=== PATIENT | male | born 1960 | race Caucasian/White ===

== ENCOUNTER 2017-01-18 10:04 | Emergency (ER) | payer BC ==
--- NOTE | ~2017-01-18 | US67 ---
[facility] A Service [facility] RADIOLOGY TEXT RESULTS PATIENT: MALICK ROMERO LOCATION: [facility] : 58 UNIT #: [id number] AGE: [address]: Daniel Carrillo MD SEX: M ORDER DR: [id number] [address] [address] [id number] E MR#: [id number] Acc #: [id number] NAME: MALICK ROMERO : 1960 SEX: M STUDY DATE/TIME: 01/18/2017 11:05 UNIT: [facility] ROOM: STUDY DESCRIPTION: US Gallbladder Attending Physician: Daniel Carrillo M.D. Ordering Physician: Daniel Carrillo M.D. Primary Care Physician: Patrizia Castañeda M.D. MEDICAL IMAGING REPORT This report is preliminary unless electronic signature is present EXAM Gallbladder ultrasound HISTORY Nausea abdomen pain right upper quadrant since 3 a.m. COMPARISON 03/29/2013 FINDINGS The pancreas is poorly visualized in the head and body. Normal. The liver shows increased echogenicity suggesting fatty change. It is normal in size. The right kidney is 11.3 cm in length and appears normal. The gallbladder is adequately distended. Gallbladder wall is normal measuring 2 mm in thickness. The common bile duct is 4 mm in diameter. IMPRESSION 1. There is no evidence of stones or biliary distention. 2. Diffuse fatty changes throughout the liver appears to be present. Dictated by... Natanael Cruz M.D. THIS IS AN ELECTRONICALLY VERIFIED REPORT Natanael Cruz M.D. at 01/18/2017 4:00 PM WOOD/rnr [facility] A Service [facility] RADIOLOGY TEXT RESULTS PATIENT: MALICK ROMERO LOCATION: [facility] : 58 UNIT #: [id number] AGE: [address]: Daniel Carrillo MD SEX: M ORDER DR: TD: 01/18/2017 12:56 JOB #: [id number] MEDICAL IMAGING REPORT COPY
[~2017-01-18 10:04] MED LIST: IBUPROFEN PO; NO MEDICATIONS
[2017-01-18 10:19] LABS: BASOPHIL% 0.7 % (0-2.5); DIFF IND NO; EOSINOPHIL% 0.2 % (0.0-7.0); HEMATOCRIT 44.9 % (38.0-50.0); HEMOGLOBIN 15.2 gm/dL (13.0-16.0); LYMPHOCYTE# 0.3 X10e3 (1.0-3.5); LYMPHOCYTE% 7.4 % (17.0-45.0); MEAN CELL VOLUME 94.7 FL (83-96); MEAN CORPUSCULAR HEMOGLOBIN 32.1 PG (28-34); MEAN CORPUSCULAR HGB CONC 33.9 g/dL (30-36); MEAN PLATELET VOLUME 7.9 FL (6.5-11.5); MONOCYTE# 0.4 X10e3 (0-1.0); MONOCYTE% 9.6 % (3.0-12.0); NEUTROPHIL# 3.6 X10e3 (1.5-7.1); NEUTROPHIL% 82.1 % (40-75); PLATELET COUNT 133 X10e3 (140-420); RED BLOOD COUNT 4.74 X10e (3.90-5.60); WHITE BLOOD COUNT 4.4 X10e3 (4.0-10.5)
[2017-01-18 11:41] LABS: ALBUMIN SERUM 4.7 g/dL (3.5-5.0); AST (SGOT) 119 U/L (10-42); BILIRUBIN, DIRECT 0.3 mg/dL (0.0-0.2); BILIRUBIN,INDIRECT 1.7 mg/dL (0.0-0.9); BLOOD UREA NITROGEN 13 mg/dL (9-23); BUN/CREATININE RATIO 10.83; CALCIUM SERUM 9.5 mg/dL (8.4-10.2); CARBON DIOXIDE 19 mmol/L (22-31); CHLORIDE 97 mmol/L (100-111); CREATININE SERUM 1.2 mg/dL (0.6-1.4); GLOM FILT RATE Estimated ABOVE60 mL/min (>60); GLUCOSE FASTING 137 mg/dL (70-110); POTASSIUM 3.9 mmol/L (3.5-5.1); PROTEIN TOTAL SERUM 7.7 g/dL (6.0-8.3); SODIUM 138 mmol/L (135-145)
[2017-01-18 11:42] LABS: ALKALINE PHOSPHATASE 65 U/L (32-92); ALT (SGPT) 78 U/L (10-40); LIPASE 25 U/L (22-51)
[2017-01-18 12:57] LABS: URINE SOURCE CLEAN CATCH
[2017-01-18 13:04] LABS: URINE APPEARANCE CLEAR; URINE BILIRUBIN NEG (NEG); URINE BLOOD NEG (NEG); URINE COLOR YELLOW; URINE GLUCOSE NEG (NEG); URINE KETONE 3+ (NEG); URINE LEUKOCYTE ESTERASE NEG (NEG); URINE NITRATE NEG (NEG); URINE PH 6.5 (5-8); URINE PROTEIN 1+ (NEG); URINE SPECIFIC GRAVITY 1.025 (1.003-1.035)
[2017-01-18 13:07] LABS: URINE BACTERIA AUWI NEG (NEGATIVE); URINE SQUAMOUS EPITHELIAL CELL NONE SEEN /[HPF]; UWBCS1 AUWI 0-2 (0-5)
[2017-01-18 13:09] LABS: CULTURE INDICATED? NO
== END 2017-01-18 13:35 | disposition home or self-care (01) ==
LOC: CED 10:04
PROVIDERS: Emergency Medicine
DX: K29.00 Acute gastritis without bleeding (principal); F10.10 Alcohol abuse, uncomplicated; K70.10 Alcoholic hepatitis without ascites; E86.0 Dehydration; E78.5 Hyperlipidemia, unspecified; I10 Essential (primary) hypertension
CPT/HCPCS: 36415; 76705; 80048; 80076; 81003; 83690; 85025; 96361; 96374; 96375; 99284; C9113; J2060; J2270; J2405